=== PATIENT | female | born 1955 | race Caucasian/White ===

== ENCOUNTER 2017-02-13 02:10 | Emergency (ER) | payer OTHER ==
[~2017-02-13] VITALS: Ht 167.6 cm; Wt 70.0 kg
[~2017-02-13 02:10] MED LIST: ASPI81TA PO; GLUC500T PO; HYDR25TAB PO; LEVO125T4 PO; LISI-538 PO
[2017-02-13 02:29] VITALS: BP 150/73
[2017-02-13] MEDS ORDERED: METO-346 (02:36)
[2017-02-13] MEDS ORDERED: LISI20TA3 (02:36)
[2017-02-13] MEDS ORDERED: ASPI81TA18 (02:36)
[2017-02-13] MEDS ORDERED: LEVO112T2 (02:36)
[2017-02-13] MEDS ORDERED: ATOR1TAB21 (02:36)
[2017-02-13] MEDS ORDERED: METF10004 (02:36)
[2017-02-13] MEDS ORDERED: ASPI1TAB15 (02:36)
[2017-02-13] MEDS ORDERED: BUPIVACAINE HCL 0.5% 30 ML VIAL SC ONE (04:00)
--- NOTE | 2017-02-13 08:46 | REP ---
Clinical: Trauma. Technique: AP and lateral views of the left hand. Findings: Lateral view best demonstrates soft tissue injury underlying the second digit terminal tuft. No subcutaneous emphysema or radiodense foreign body. Osseous structures demonstrate age-related degenerative changes without acute fracture or dislocation. Impression: Soft tissue injury. No acute fracture or dislocation. Signed by Robert Banegas MD 02/13/2017 08:38 A
== END 2017-02-13 05:45 | disposition home or self-care (01) ==
LOC: M ED 02:10
DX: S60.052A Contusion of left little finger without damage to nail, initial encounter (principal); S61.217A Laceration without foreign body of left little finger without damage to nail, initial encounter; W31.89XA Contact with other specified machinery, initial encounter; Y92.59 Other trade areas as the place of occurrence of the external cause; Y93.89 Activity, other specified; Y99.0 Civilian activity done for income or pay; I10 Essential (primary) hypertension; E11.9 Type 2 diabetes mellitus without complications; E03.9 Hypothyroidism, unspecified; F17.210 Nicotine dependence, cigarettes, uncomplicated; Z79.82 Long term (current) use of aspirin; Z79.899 Other long term (current) drug therapy; Z79.84 Long term (current) use of oral hypoglycemic drugs